=== PATIENT | female | born 1980 | race Caucasian/White ===

== ENCOUNTER 2017-01-03 18:27 | Emergency (ER) | payer OTHER ==
[~2017-01-03] VITALS: Ht 170.2 cm; Wt 108.0 kg
[~2017-01-03 18:27] MED LIST: ATENOLOL100 M1 PO; AUGMENTIN 875-1 EACH PO; LEVOTHYROXINE25 MCG PO; LISINOPRIL40 M1 PO; METFORMIN HCL1000 M1 PO; METFORMIN HCL500 MG PO; METHIMAZOLE10 MG PO; ZANTAC 150MG150 MG PO
[2017-01-03 19:52] LABS: ABSOLUTE BASOPHIL COUNT 0 /CUMM (0.0-0.2); ABSOLUTE EOSINOPHIL COUNT 0.1 /CUMM (0.0-0.7); ABSOLUTE GRANULOCYTE CT 8.2 /CUMM (1.4-6.5); ABSOLUTE LYMPH COUNT 2.2 /CUMM (1.2-3.4); ABSOLUTE MONOCYTE COUNT 0.7 /CUMM (0.10-0.60); BASOPHIL % 0.2 % (0.0-2.0); EOSINOPHIL % 1.1 % (0-5); GRANULOCYTE % 73.3 % (42.2-75.2); HEMATOCRIT 35.1 % (37-47); MEAN CORPUSCULAR HGB 23.9 PG (27.0-31.0); MEAN CORPUSCULAR HGB CONC 33.2 G/DL (33.0-37.0); MEAN PLATELET VOLUME 7.7 FL (7.4-10.4); PLATELET COUNT 354 /CUMM (130-400); RBC DISTRIBUTION WIDTH 14.8 % (11.5-14.5); RED BLOOD CELL CT 4.87 /CUMM (4.20-5.40); WHITE BLOOD CELL COUNT 11.2 /CUMM (4.8-10.8)
[2017-01-03] MEDS ORDERED: PANTOPRAZOLE SO40 M1 PO (19:58)
[2017-01-03] MEDS ORDERED: LEVOTHYROXINE50 MCG PO (19:59)
[2017-01-03] MEDS ORDERED: DEXILANT60 M1 PO (19:59)
[2017-01-03] MEDS ORDERED: OMEGA-31000 M1 PO (20:00)
[2017-01-03] MEDS ORDERED: FERROUS SULFAT325 M3 PO (20:00)
[2017-01-03] MEDS ORDERED: ALPRAZOLAM0.5 M4 PO (20:01)
--- NOTE | 2017-01-03 20:16 | ED GI/GU/ABDOMINAL COMPLAINT ---
History of Present Illness General Chief Complaint: Abdominal Pain/Flank Pain Stated Complaint: SENT BY URGENT CARE FOR EVAL OF ABD PAIN Source: patient Exam Limitations: no limitations Vital Signs & Intake/Output Vital Signs & Intake/Output Vital Signs Date Time Temp Pulse Resp B/P B/P Pulse O2 O2 Flow FiO2 Mean Ox Delivery Rate 01/030 97.6 78 16 147/85 97 Room Air 01/03 2130 98.2 82 16 130/88 97 Room Air 01/03 1947 Room Air 01/03 1831 98.3 110 16 162/115 199 Room Air ED Intake and Output 01/04 0000 01/03 1200 Intake Total Output Total Balance Patient 238 lb Weight Weight Reported by Patient Measurement Method Allergies Coded Allergies: NO KNOWN ALLERGIES (11/21/16) Reconcile Medications Alprazolam 0.5 MG TABLET 1 TAB PO PRN FLIGHT (Reported) Atenolol 100 MG TABLET 1 TAB PO DAILY HTN (Reported) Dexlansoprazole (Dexilant) 60 MG SHYAM.BP 1 CAP PO DAILY GI (Reported) Ferrous Sulfate 325 MG (65 MG IRON) TABLET 1 TAB PO DAILY SUPPLEMENT ( Reported) Levothyroxine Sodium 50 MCG TABLET 1 TAB PO DAILY THYROID (Reported) Lisinopril 40 MG TABLET 1 TAB PO DAILY HTN (Reported) Metformin HCl 1,000 MG TABLET 1 TAB PO BID DIABETES (Reported) Providence-3 Fatty Acids (Providence-3) (Unknown Strength) CAPSULE (Unknown Dose) PO DAILY SUPPLEMENT (Reported) Oxycodone HCl/Acetaminophen (Percocet 5-325 MG Tablet) 5 MG-325 MG TABLET 1-2 TAB PO Q6P PRN PAIN Triage Note: PT STATES SHE IS HAVING ABD PAIN THAT GOES FROM HER [place] TO HER RIGHT SIDE THAT BEGAN AT 0900 TODAY;. PT WENT TO WALK IN AND WAS SENT HERE TO R/O APPENDICITIS. PT STATES SHE HAS HAD CHILLS ON AND OFF TODAY Triage Nurses Notes Reviewed? yes ? n Is pt currently ? No Onset: Abrupt Duration: day(s): (1), constant, getting worse Timing: recent history Quality/Severity: sharpness, severe Location: right lower quadrant Activities at Onset: none No Modifying Factors: none HPI: 36-year-old female comes into emergency room with complaints of right lower abdominal pain. Patient reports that she started with some periumbilical pain that was sudden onset this morning and now has progressively gotten worse in the right lower abdomen. Decreased appetite. Denies any fever chills vomiting. Denies any vaginal discharge. Mild increased frequency with urination but denies any other urinary symptoms. Denies any other systemic symptoms. (PAYTON SORIANO) Past History Travel History Traveled to [place] past 21 day No Medical History Any Pertinent Medical History? see below for history EENT: NONE Cardiovascular: hypertension Respiratory: NONE Gastrointestinal: ACID REFLUX Hepatic: NONE Renal: NONE Musculoskeletal: NONE Psychiatric: NONE Endocrine: diabetes, Grave's disease Surgical History Surgical History: none Psychosocial History What is your primary language Amharic Tobacco Use: Current Daily Use Daily Tobacco Use Amount/Type: => 5 Cigarettes daily ETOH Use: occasional use Illicit Drug Use: denies illicit drug use Family History Hx Contributory? No (PAYTON SORIANO) Review of Systems Review of Systems Constitutional: Reports: no symptoms. EENTM: Reports: no symptoms. Respiratory: Reports: no symptoms. Cardiovascular: Reports: no symptoms. GI: Reports: see HPI. Genitourinary: Reports: see HPI. Musculoskeletal: Reports: no symptoms. Skin: Reports: no symptoms. Neurological/Psychological: Reports: no symptoms. Hematologic/Endocrine: Reports: no symptoms. Immunologic/Allergic: Reports: no symptoms. All Other Systems: Reviewed and Negative (PAYTON SORIANO) Physical Exam Physical Exam General Appearance: well developed/nourished, alert, awake Head: atraumatic, normal appearance Eyes: Bilateral: normal appearance. Ears, Nose, Throat, Mouth: hearing grossly normal, moist mucous membrane Neck: normal inspection Respiratory: normal breath sounds, no respiratory distress Cardiovascular: regular rate/rhythm Gastrointestinal: soft, tenderness (right lower quadrant), no guarding, no rebound tenderness Back: normal inspection Extremities: normal range of motion Neurologic/Psych: awake, alert, oriented x 3, normal gait, normal mood/affect Skin: intact, normal color Core Measures ACS in differential dx? No Severe Sepsis Present: No Septic Shock Present: No (PAYTON SORIANO) Progress Differential Diagnosis: AMI, appendicitis, biliary colic, bowel obstruction, cholecystitis, diverticulitis, gastritis, hepatitis, inflamm bowel dis, kidney stone, ovarian cyst, ovarian torsion, PID/cervicitis, threatened AB, UTI/pyelo Plan of Care: Orders Procedure Date/time Status URINE 01/04 1916 Complete URINALYSIS 01/04 1916 Complete C-REACTIVE PROTEIN 01/04 1916 Complete COMPREHENSIVE METABOLIC PANEL 01/04 1916 Complete CBC WITHOUT DIFFERENTIAL 01/04 1916 Complete Laboratory Tests 01/03/171942: Urinalysis LIGHT H, Urine Color YEL, Urine Clarity HAZY H, Urine pH 7.0, Ur Specific [place] 1.010, Urine Protein NEG, Urine Ketones NEG, Urine Nitrite NEG, Urine Bilirubin NEG, Urine Urobilinogen 0.2, Ur Leukocyte Esterase NEG, Ur Microscopic SEDIMENT EXAMINED, Urine RBC 1-3, Urine WBC RARE, Ur Epithelial Cells MOD H, Urine Hemoglobin SMALL H, Urine Glucose NEG, Urine Test NEGATIVE 01/03/171941: Anion Gap 10, Estimated GFR > 60, BUN/Creatinine Ratio 11.7, Glucose 100 H, Calcium 9.1, Total Bilirubin 0.7, AST 18, ALT 32, Alkaline Phosphatase 49, C- Reactive Prot, Quant 2.1 H, Total Protein 7.6, Albumin 4.4, Globulin 3.2, Albumin/Globulin Ratio 1.4, CBC w Diff NO MAN DIFF REQ, RBC 4.87, MCV 72.0 L, MCH 23.9 L, RDW 14.8 H, MPV 7.7, Gran % 73.3, Lymphocytes % 19.4 L, Monocytes % 6.0, Eosinophils % 1.1, Basophils % 0.2, Absolute Granulocytes 8.2 H, Absolute Lymphocytes 2.2, Absolute Monocytes 0.7 H, Absolute Eosinophils 0.1, Absolute Basophils 0, PUBS MCHC 33.2 Diagnostic Imaging: Viewed by Me: CT Scan, Ultrasound. Discussed w/RAD: CT Scan, Ultrasound. Radiology Impression: SERVICE DATE: 01/03/17 EXAM TYPE: US - US- TRANSVAGINAL EXAMINATION: ULTRASOUND PELVIC, COMPLETE CLINICAL INFORMATION: Right-sided pelvic pain COMPARISON: CT scan abdomen pelvis 01/03/2017 TECHNIQUE: Transvaginal: Used to better visualize pelvic structures Transabdominal: Not adequate for visualization Spectral Doppler and color Doppler exam was utilized. LMP: 12/20/2016 FINDINGS: UTERUS: Unremarkable. Uterus is anteverted The uterus measures 9.3 x 4.2 x 5.4 cm. Cervical length 2.9 cm Endometrial thickness 0.6 cm ADNEXA: Ovarian vascularity:Doppler demonstrates both arterial and venous vascular flow in the right ovary. No evidence of ovarian torsion. The left ovary is not seen. Right Ovary: Unremarkable. 2.4 x 3.8 x 2.5 cm. Volume 11.6 mL Left Ovary: Left ovary not seen. No adnexal abnormality. Cul-de-sac: No Fluid IMPRESSION: Left ovary is not visualized. Normal vascular flow seen of the right ovary with no evidence of torsion. DICTATED BY: AXEL LEIVA MD DATE/TIME DICTATED:01/03/172303 FLEECER:KAYLA DATE/TIME TRANSCRIBED:2303 CONFIDENTIAL, DO NOT COPY WITHOUT APPROPRIATE AUTHORIZATION., SERVICE DATE: 01/03/17 EXAM TYPE: CAT - CT ABD & PELVIS W IV CONTRAST EXAMINATION: CT ABDOMEN AND PELVIS WITH CONTRAST CLINICAL INFORMATION: Right lower quadrant abdominal pain. Evaluate for acute appendicitis. COMPARISON: CT abdomen and pelvis 03/15/2013. TECHNIQUE: Multidetector volumetric imaging was performed of the abdomen and pelvis before and after the IV administration of 95 mL of Optiray 320 intravenous contrast. Sagittal and coronal reformatted images were obtained on the technologist's workstation. DLP: 1011 mGy-cm FINDINGS: LUNG BASES: The visualized lung bases are unremarkable. LIVER, GALLBLADDER, AND BILIARY TREE: The liver is normal in size, shape, and attenuation. No focal hepatic lesion or biliary ductal dilatation is present. The gallbladder is unremarkable with no evidence of radiopaque gallstones, gallbladder wall thickening, or obvious pericholecystic inflammatory changes. PANCREAS: Unremarkable. SPLEEN: Unremarkable. ADRENAL GLANDS: Unremarkable. KIDNEYS AND URETERS: The kidneys are normal in size, shape, and attenuation. No hydronephrosis, hydroureter, or calculi seen. No perinephric stranding. BLADDER: Unremarkable. GASTROINTESTINAL TRACT: Normal anatomic orientation of the stomach relative to the duodenum. Normal caliber of abdominal and pelvic bowel loops, without evidence of obstruction or ileus. No circumferential bowel wall thickening with surrounding inflammatory changes to suggest an underlying infectious or inflammatory enterocolitis. Normal-appearing appendix within the right lower quadrant of the abdomen. No organizing intra-abdominal fluid collections or free intraperitoneal air. ABDOMINAL WALL: Small fat-containing umbilical hernia. LYMPH NODES: No significant abdominal or pelvic adenopathy. VASCULAR: Patent abdominal vasculature. Normal course and caliber of the abdominal aorta and its branching vessels, without aneurysmal dilatation. PELVIC VISCERA: Asymmetric enlargement of the right ovary. OSSEOUS STRUCTURES: No acute osseous abnormality. Normal alignment of the thoracolumbar spine. IMPRESSION: No acute findings within the abdomen to explain patient symptomatology. A normal- appearing appendix is present within the right lower quadrant of the abdomen. There is asymmetric enlargement of the right ovary. If the patient is experiencing right-sided pelvic pain, consider correlation with pelvic ultrasound. DICTATED BY: TAVO HERNÁNDEZ MD DATE/TIME DICTATED:01/03/172113 FLEECER:KAYLA DATE/TIME TRANSCRIBED:01/03/172113 Initial ED EKG: none Comments: Patient reevaluated multiple times. Patient feels better after IV morphine. Patient clinically looks well. Very low suspicion for ovarian torsion. Patient reports that they typically have difficulty finding one of her ovaries broken remember which one on previous imaging. No evidence of appendicitis. Patient can follow-up with her [employer] doctor this time. She is resting comfortably in the room upon discharge. In no apparent distress. Denies any vaginal discharge. Case discussed with Dr. morris. Return if any other concerns worsening symptoms. (PAYTON SORIANO) Departure Departure Disposition: HOME OR SELF CARE Condition: Stable Clinical Impression Primary Impression: Abdominal pain Referrals: MARIBEL BOLDEN MD (PCP/Family) Additional Instructions: Take Percocet as prescribed. Follow-up with your [employer] doctor. Call them tomorrow for further evaluation. Return to the emergency room immediately if any other concerns worsening symptoms. A copy of the report has been provided to you. Departure Forms: Customer Survey General Discharge Information Prescriptions: Current Visit Scripts Oxycodone HCl/Acetaminophen (Percocet 5-325 MG Tablet) 1-2 TAB PO Q6P PRN PAIN #10 TAB (PAYTON SORIANO) PA/CARBON DIOXIDE OPERATOR Co-Sign Statement Statement: ED Attending supervision documentation- I saw and evaluated the patient. I have also reviewed all the pertinent lab results and diagnostic results. I agree with the findings and the plan of care as documented in the PA's/CARBON DIOXIDE OPERATOR's documentation. x I have reviewed the ED Record and agree with the PA's/CARBON DIOXIDE OPERATOR's documentation. [] Additions or exceptions (if any) to the PAs/CARBON DIOXIDE OPERATOR's note and plan are summarized below: [] (MARY BETH ALY,MANUEL)
--- NOTE | 2017-01-03 21:32 | CT SCAN REPORT ---
EXAMINATION: CT ABDOMEN AND PELVIS WITH CONTRAST CLINICAL INFORMATION: Right lower quadrant abdominal pain. Evaluate for acute appendicitis. COMPARISON: CT abdomen and pelvis 03/15/2013. TECHNIQUE: Multidetector volumetric imaging was performed of the abdomen and pelvis before and after the IV administration of 95 mL of Optiray 320 intravenous contrast. Sagittal and coronal reformatted images were obtained on the technologist's workstation. DLP: 1011 mGy-cm FINDINGS: LUNG BASES: The visualized lung bases are unremarkable. LIVER, GALLBLADDER, AND BILIARY TREE: The liver is normal in size, shape, and attenuation. No focal hepatic lesion or biliary ductal dilatation is present. The gallbladder is unremarkable with no evidence of radiopaque gallstones, gallbladder wall thickening, or obvious pericholecystic inflammatory changes. PANCREAS: Unremarkable. SPLEEN: Unremarkable. ADRENAL GLANDS: Unremarkable. KIDNEYS AND URETERS: The kidneys are normal in size, shape, and attenuation. No hydronephrosis, hydroureter, or calculi seen. No perinephric stranding. BLADDER: Unremarkable. GASTROINTESTINAL TRACT: Normal anatomic orientation of the stomach relative to the duodenum. Normal caliber of abdominal and pelvic bowel loops, without evidence of obstruction or ileus. No circumferential bowel wall thickening with surrounding inflammatory changes to suggest an underlying infectious or inflammatory enterocolitis. Normal-appearing appendix within the right lower quadrant of the abdomen. No organizing intra-abdominal fluid collections or free intraperitoneal air. ABDOMINAL WALL: Small fat-containing umbilical hernia. LYMPH NODES: No significant abdominal or pelvic adenopathy. VASCULAR: Patent abdominal vasculature. Normal course and caliber of the abdominal aorta and its branching vessels, without aneurysmal dilatation. PELVIC VISCERA: Asymmetric enlargement of the right ovary. OSSEOUS STRUCTURES: No acute osseous abnormality. Normal alignment of the thoracolumbar spine. IMPRESSION: No acute findings within the abdomen to explain patient symptomatology. A normal-appearing appendix is present within the right lower quadrant of the abdomen. There is asymmetric enlargement of the right ovary. If the patient is experiencing right-sided pelvic pain, consider correlation with pelvic ultrasound.
[2017-01-03 22:50] VITALS: BP 147/85
--- NOTE | 2017-01-03 23:11 | ULTRASOUND REPORT ---
EXAMINATION: ULTRASOUND PELVIC, COMPLETE CLINICAL INFORMATION: Right-sided pelvic pain COMPARISON: CT scan abdomen pelvis 01/03/2017 TECHNIQUE: Transvaginal: Used to better visualize pelvic structures Transabdominal: Not adequate for visualization Spectral Doppler and color Doppler exam was utilized. LMP: 12/20/2016 FINDINGS: UTERUS: Unremarkable. Uterus is anteverted The uterus measures 9.3 x 4.2 x 5.4 cm. Cervical length 2.9 cm Endometrial thickness 0.6 cm ADNEXA: Ovarian vascularity:Doppler demonstrates both arterial and venous vascular flow in the right ovary. No evidence of ovarian torsion. The left ovary is not seen. Right Ovary: Unremarkable. 2.4 x 3.8 x 2.5 cm. Volume 11.6 mL Left Ovary: Left ovary not seen. No adnexal abnormality. Cul-de-sac: No Fluid IMPRESSION: Left ovary is not visualized. Normal vascular flow seen of the right ovary with no evidence of torsion.
[2017-01-03] MEDS ORDERED: PERCOCET 5-3251 EACH PO (23:32)
== END 2017-01-04 00:03 ==
LOC: ERH 18:27
PROVIDERS: Physician Assistant Medical
DX: R10.31 Right lower quadrant pain (principal)
CPT/HCPCS: 74177; 81001; 81025; 96374; 96375; 96376; J2405

== ENCOUNTER 2017-12-28 11:59 | Emergency (ER) | payer OTHER ==
[~2017-12-28] VITALS: Ht 170.2 cm; Wt 79.8 kg
[~2017-12-28 11:59] MED LIST changes: +ALPRAZOLAM0.5 M4 PO; +DEXILANT60 M1 PO; +FERROUS SULFAT325 M3 PO; +LEVOTHYROXINE50 MCG PO; +OMEGA-31000 M1 PO; +PANTOPRAZOLE SO40 M1 PO; +PERCOCET 5-3251 EACH PO; +VALIUM5 M2 PO
--- NOTE | 2017-12-28 12:13 | ED GI/GU/ABDOMINAL COMPLAINT ---
History of Present Illness General Chief Complaint: Abdominal Pain/Flank Pain Stated Complaint: ABD PAIN Source: patient Exam Limitations: no limitations Vital Signs & Intake/Output Vital Signs & Intake/Output Vital Signs Date Time Temp Pulse Resp B/P B/P Pulse O2 O2 Flow FiO2 Mean Ox Delivery Rate 12/28 1410 98.6 63 18 122/78 98 Room Air 12/28 1213 96.9 60 18 135/88 97 Room Air Allergies Coded Allergies: NO KNOWN ALLERGIES (11/21/16) Reconcile Medications Atenolol 100 MG TABLET 1 TAB PO DAILY HTN (Reported) Dexlansoprazole (Dexilant) 60 MG SHYAM.BP 1 CAP PO DAILY GI (Reported) Diazepam (Valium) 5 MG TABLET 1 TAB PO BIDP PRN Cervical Muscle Spasm Ferrous Sulfate 325 MG (65 MG IRON) TABLET 1 TAB PO DAILY SUPPLEMENT ( Reported) Hydrocodone/Acetaminophen (Surveyor 5-325 Tablet) 5 MG-325 MG TABLET 1-2 TAB PO Q4-6 PRN PRN pain Levothyroxine Sodium 50 MCG TABLET 1 TAB PO DAILY THYROID (Reported) Lisinopril 40 MG TABLET 1 TAB PO BID BP (Reported) Metformin HCl 1,000 MG TABLET 1 TAB PO BID DIABETES (Reported) Hooper-3 Fatty Acids (Hooper-3) (Unknown Strength) CAPSULE (Unknown Dose) PO DAILY SUPPLEMENT (Reported) Ondansetron (Zofran Odt) 4 MG TAB.RAPDIS 1 TAB SL TID PRN nausea Ondansetron (Zofran Odt) 4 MG TAB.RAPDIS 1 TAB SL TID PRN nausea Triage Note: PT TO ER C/C RUQ PAIN X 1 WEEK. +N/V. HX OF GASTRIC SLEEVE 08/2017 WITH 64 LB WEIGHT LOSS. DENIES URINARY S/S. Triage Nurses Notes Reviewed? yes LMP (ages 10-50): unknown ? N Is pt currently ? No Onset: Abrupt Duration: week(s): (1), changing over time, gone now, intermittent Timing: single episode today Quality/Severity: cramping Severity Numbers: 7 Location: right upper quadrant Radiation: no radiation Activities at Onset: none Prior Abdominal Problems: none Past Sexual History: Unobtainable at this time No Modifying Factors: none Modifying Factors: Worsens With: eating. Associated Symptoms: abdominal pain, nausea/vomiting HPI: 37-year-old female past medical history of hypertension, obesity status post gastric sleeve last year, Graves' disease presents for evaluation of abdominal pain. Patient states that over the past week she has intermittent episodes of right upper quadrant abdominal pain nausea and vomiting. Patient states that symptoms will start typically after eating especially fatty foods and then resolved several hours later. The pain is located in the right upper quadrant and described as cramping. It will sometimes radiate to the right flank. No diarrhea urinary symptoms fever chest pain or shortness of breath. She never had this before. No hematuria. Currently patient is asymptomatic. Her last episode was last night while eating dinner. She has a gallbladder ultrasound scheduled for next week but feels like she cannot wait. (Luis Bahena) Past History Travel History Traveled to [place] past 21 day No Medical History Any Pertinent Medical History? see below for history EENT: NONE Cardiovascular: hypertension Respiratory: NONE Gastrointestinal: ACID REFLUX Hepatic: NONE Renal: NONE Musculoskeletal: NONE Psychiatric: NONE Endocrine: diabetes, Grave's disease Surgical History Surgical History: none Psychosocial History What is your primary language Malay Tobacco Use: Quit >30 days ago Family History Hx Contributory? No (Luis Bahena) Review of Systems Review of Systems Constitutional: Reports: no symptoms. EENTM: Reports: no symptoms. Respiratory: Reports: no symptoms. Cardiovascular: Reports: no symptoms. GI: Reports: see HPI, abdominal pain, nausea, vomiting. Genitourinary: Reports: no symptoms. Musculoskeletal: Reports: no symptoms. Skin: Reports: no symptoms. Neurological/Psychological: Reports: no symptoms. Hematologic/Endocrine: Reports: no symptoms. Immunologic/Allergic: Reports: no symptoms. All Other Systems: Reviewed and Negative (Luis Bahena) Physical Exam Physical Exam General Appearance: well developed/nourished, no apparent distress, alert, awake Head: atraumatic, normal appearance Eyes: Bilateral: normal appearance, PERRL, EOMI. Ears, Nose, Throat, Mouth: hearing grossly normal, moist mucous membrane Neck: normal inspection, supple, full range of motion Respiratory: normal breath sounds, chest non-tender, no respiratory distress, lungs clear Cardiovascular: regular rate/rhythm, normal peripheral pulses Peripheral Pulses: 2+ radial (R), 2+ radial (L) Gastrointestinal: normal bowel sounds, soft, no organomegaly, tenderness (MILD RUQ) Back: normal inspection, normal range of motion, no vertebral tenderness Extremities: normal range of motion Neurologic/Psych: no motor/sensory deficits, awake, alert, oriented x 3, normal gait, normal mood/affect Skin: intact, normal color, warm/dry Core Measures ACS in differential dx? No Sepsis Present: No Sepsis Focused Exam Completed? No (Luis Bahena) Progress Differential Diagnosis: appendicitis, biliary colic, cholecystitis, gastritis, hepatitis, intrauterine , kidney stone, pancreatitis, peptic ulcer, PUD /GERD, UTI/pyelo Plan of Care: Orders Procedure Date/time Status URINE 12/28 1212 Complete URINALYSIS 12/28 1212 Complete LIPASE 12/28 1212 Complete COMPREHENSIVE METABOLIC PANEL 12/28 1212 Complete CBC WITHOUT DIFFERENTIAL 12/28 1212 Complete Laboratory Tests 12/28/17 1250: Anion Gap 16, Estimated GFR > 60, BUN/Creatinine Ratio 15.7, Glucose 91, Calcium 9.6, Total Bilirubin 0.9, AST 16, ALT 25, Alkaline Phosphatase 44, Total Protein 8.4 H, Albumin 4.8, Globulin 3.6, Albumin/Globulin Ratio 1.3, Lipase 174, CBC w Diff NO MAN DIFF REQ, RBC 5.48 H, MCV 73.9 L, MCH 23.9 L, MCHC 32.3 L, RDW 19.4 H, MPV 9.1, Gran % 65.8, Lymphocytes % 24.1, Monocytes % 8.5, Eosinophils % 1.2, Basophils % 0.4, Absolute Granulocytes 4.1, Absolute Lymphocytes 1.5, Absolute Monocytes 0.5, Absolute Eosinophils 0.1, Absolute Basophils 0 12/28/17 1245: Urine Color YEL, Urine Clarity CLEAR, Urine pH 6.5, Ur Specific [place] <= 1.005 , Urine Protein NEG, Urine Ketones NEG, Urine Nitrite NEG, Urine Bilirubin NEG, Urine Urobilinogen 0.2, Ur Leukocyte Esterase NEG, Ur Microscopic EXAM NOT REQUIRED, Urine Hemoglobin NEG, Urine Glucose NEG, Urine Test NEGATIVE Patient seen and evaluated. She is reporting intermittent right upper quadrant pain nausea and vomiting over the past week. Symptoms seem to worsen with eating specific greasy fatty foods. No diarrhea no chest pain or shortness of breath. Currently she states feels well declines any pain medication. Check basic labs and an ultrasound of the right upper quadrant. Blood work is within normal limits patient is still asymptomatic. Waiting on ultrasound result. us SHOWS EVIDENCE OF SMALL GALLSTONES OR SLUDGE. NO SIGNS OF CHOLECYSTITIS. PATIENT CONTINUES TO BE ASYMPTOMATIC HERE. Reviewed all results of today's visit with patient. She'll be given a prescription for Zofran and Surveyor to use for any returning pain. Avoid greasy fatty spicy foods. Call Dr. Obrien on Saturday. Discussed return precautions in detail return with fever or worsening pain and his Phi fluids jaundice or any other concerns. Patient agrees the plan. Diagnostic Imaging: Viewed by Me: Ultrasound. Discussed w/RAD: Ultrasound. Radiology Impression: PATIENT: KIRSTEN BASURTO PRESENT AGE: 37 PATIENT ACCOUNT NO: [id number] : 82 LOCATION: [facility] ORDERING PHYSICIAN: Luis LUCIANO SERVICE DATE: 12/28/17 EXAM TYPE: US - US- LIMITED ABDOMEN EXAMINATION: US ABDOMEN LIMITED CLINICAL INFORMATION: Right upper quadrant pain, intermittent, worse with eating.. COMPARISON: Abdominal ultrasound 11/30/2016. TECHNIQUE: Real-time imaging of the right upper quadrant abdominal viscera. FINDINGS: PANCREAS: The visualized portions are unremarkable. LIVER: Normal. The liver demonstrates normal size, contour and echogenicity. No focal lesion or intrahepatic biliary duct dilatation. GALLBLADDER: There are tiny stones and/or sludge within the dependent gallbladder, which are new from prior examination. No gallbladder wall thickening or pericholecystic fluid. COMMON BILE DUCT: Normal in caliber measuring 0.4 cm in diameter. RIGHT KIDNEY: Normal. No hydronephrosis. No renal calculi or focal parenchymal lesions. The kidney measures 13.3 cm in maximum dimension which is at the upper limits of normal. FREE FLUID: None. IMPRESSION: Small gallstones and/or sludge. No evidence of cholecystitis. DICTATED BY: Marshall Mohan MD DATE/TIME DICTATED:1400 POLYSOMNOGRAPHY TECHNOLOGIST:KAYLA DATE/TIME TRANSCRIBED:12/28/171400 CONFIDENTIAL, DO NOT COPY WITHOUT APPROPRIATE AUTHORIZATION. <Electronically signed in Other Vendor System> SIGNED BY: Marshall Mohan MD 12/28/171407 Initial ED EKG: none (Jose LUCIANO,Luis) Departure Departure Disposition: HOME OR SELF CARE Condition: Stable Clinical Impression Primary Impression: Cholelithiasis Qualifiers: Cholelithiasis location: gallbladder Cholecystitis presence: without cholecystitis Referrals: Camille ALY,Ravi Snyder MD,Soumya Additional Instructions: Rest drink plenty of fluids. Zofran for nausea and Surveyor for severe pain only. Avoid greasy fatty spicy foods. Zantac or Pepcid . Call Dr. Obrien on Saturday to schedule an appointment as soon as possible. It's important to monitor symptoms if you have worsening/changing pain, fever, unable tolerate fluids or any other concerns return immediately. Departure Forms: Customer Survey General Discharge Information Prescriptions: Current Visit Scripts Ondansetron (Zofran Odt) 1 TAB SL TID PRN nausea #10 TAB Ondansetron (Zofran Odt) 1 TAB SL TID PRN nausea #10 TAB Hydrocodone/Acetaminophen (Surveyor 5-325 Tablet) 1-2 TAB PO Q4-6 PRN PRN pain #10 TAB (Luis Bahena) PA/[employer]PER[employer]OR [employer] Co-Sign Statement Statement: ED Attending supervision documentation- I saw and evaluated the patient. I have also reviewed all the pertinent lab results and diagnostic results. I agree with the findings and the plan of care as documented in the PA's/[employer]PER[employer]'s documentation. x I have reviewed the ED Record and agree with the PA's/[employer]PER[employer]'s documentation. [] Additions or exceptions (if any) to the PAs/[employer]PER[employer]'s note and plan are summarized below: [] (Christos ALY,Calin)
[2017-12-28 13:14] LABS: ABSOLUTE BASOPHIL COUNT 0 /CUMM (0.0-0.2); ABSOLUTE EOSINOPHIL COUNT 0.1 /CUMM (0.0-0.7); ABSOLUTE GRANULOCYTE CT 4.1 /CUMM (1.4-6.5); ABSOLUTE LYMPH COUNT 1.5 /CUMM (1.2-3.4); ABSOLUTE MONOCYTE COUNT 0.5 /CUMM (0.10-0.60); BASOPHIL % 0.4 % (0.0-2.0); EOSINOPHIL % 1.2 % (0-5); GRANULOCYTE % 65.8 % (42.2-75.2); HEMATOCRIT 40.5 % (37-47); MEAN CORPUSCULAR HGB 23.9 PG (27.0-31.0); MEAN CORPUSCULAR HGB CONC 32.3 G/DL (33.0-37.0); MEAN CORPUSCULAR VOLUME 73.9 FL (81.0-99.0); MEAN PLATELET VOLUME 9.1 FL (7.4-10.4); PLATELET COUNT 370 /CUMM (130-400); RBC DISTRIBUTION WIDTH 19.4 % (11.5-14.5); RED BLOOD CELL CT 5.48 /CUMM (4.20-5.40); WHITE BLOOD CELL COUNT 6.3 /CUMM (4.8-10.8)
--- NOTE | 2017-12-28 14:08 | ULTRASOUND REPORT ---
EXAMINATION: US ABDOMEN LIMITED CLINICAL INFORMATION: Right upper quadrant pain, intermittent, worse with eating.. COMPARISON: Abdominal ultrasound 11/30/2016. TECHNIQUE: Real-time imaging of the right upper quadrant abdominal viscera. FINDINGS: PANCREAS: The visualized portions are unremarkable. LIVER: Normal. The liver demonstrates normal size, contour and echogenicity. No focal lesion or intrahepatic biliary duct dilatation. GALLBLADDER: There are tiny stones and/or sludge within the dependent gallbladder, which are new from prior examination. No gallbladder wall thickening or pericholecystic fluid. COMMON BILE DUCT: Normal in caliber measuring 0.4 cm in diameter. RIGHT KIDNEY: Normal. No hydronephrosis. No renal calculi or focal parenchymal lesions. The kidney measures 13.3 cm in maximum dimension which is at the upper limits of normal. FREE FLUID: None. IMPRESSION: Small gallstones and/or sludge. No evidence of cholecystitis.
[2017-12-28 14:10] VITALS: BP 122/78
[2017-12-28] MEDS ORDERED: ZOFRAN ODT4 M1 SL ×2 (14:53→14:54)
[2017-12-28] MEDS ORDERED: NORCO 5-325 TA1 EACH PO ×2 (14:53→14:54)
== END 2017-12-28 15:47 ==
LOC: ERH 11:59
PROVIDERS: Physician Assistant Medical
DX: K80.20 Calculus of gallbladder without cholecystitis without obstruction (principal)
CPT/HCPCS: 81003; 81025

== ENCOUNTER → 2018-01-10 | Day surgery (SDC) | payer OTHER ==
[~2018-01-10] VITALS: Ht 170.2 cm; Wt 79.8 kg
[~2018-01-10] MED LIST changes: +CALCIUM 600 +1 EACH PO; +IRON325 M3 PO; +KETOROLAC TROME10 M1 PO; +LEVOXYL100 MCG PO; +MULTIVITAMINS1 EAC9 PO; +NORCO 5-325 TA1 EACH PO; +TYLENOL WITH C1 EACH PO; +VITAMIN B122500 MC1 PO; +ZOFRAN ODT4 M1 SL
--- NOTE | 2018-01-10 16:17 | Operative Report ---
Operative/Inv Procedure Report Surgery Date: 01/10/18 Name of Procedure: Laparoscopic cholecystectomy Pre-Operative Diagnosis: cholecystitis Post-Operative Diagnosis: same Estimated Blood Loss: less than 20cc Surgeon/Conveyor Mechanic: Camille ALY,Chad Ellsworth PA-C Anesthesia: general endotracheal tube, block IV Fluids: LR Implants: none Urine Output: na Drains: none Specimens: gallbladder Complications: none Condition: stable Operative Indication: see admitting history and physical Operative/Procedure Note Note: After informed consent and proper identification the patient was taken the operating room placed on the operating table supine position. Venodyne stockings were applied. Patient underwent a general endotracheal anesthetic. The abdomen was prepped and draped in normal sterile fashion. An infraumbilical incision was made with #11 blade through the skin subcutaneous tissue down to the fascia. The fascia was elevated between 2-0 Vicryl sutures and opened transversely and a blunt port cannula inserted into the abdominal cavity under direct visualization. We insufflated the abdomen with 14 mm CO2 pressure. Next we placed 3 additional trochars 5 mm trocar in the upper midline and 25 mm trochars along the right subcostal margin. Regressive fundus of the gallbladder dissected the cystic duct and cystic artery out with a [place] dissector after pulling the infundibulum laterally and opening up the triangle Calot. We clearly identified the cystic duct and cystic stick artery and with a 5 mm clip clinical review nurse placed 2 clips proximally and one distally and divided the duct and artery we then dissected the gallbladder out of the liver bed without difficulty. Hemostasis was obtained from the liver bed. Removed the gallbladder and 10 Endo Catch bag. Gallbladder sent to pathology specimen. Sponge and instrument counts were correct. We close infraumbilical fascia with 0 Vicryl suture. We closed skin incisions with 4-0 Monocryl subcuticular stitches. Dry sterile dressings placed Patient was awoken extubated and taken the recovery room in stable condition Findings: smooth liver, tiny small sediment in gallbladder, smooth liver Discharge Disposition: PACU
== END ==
LOC: STS 01:13
DX: K80.10 Calculus of gallbladder with chronic cholecystitis without obstruction (principal); E11.9 Type 2 diabetes mellitus without complications; I10 Essential (primary) hypertension; E03.9 Hypothyroidism, unspecified; G47.33 Obstructive sleep apnea (adult) (pediatric); E66.9 Obesity, unspecified; Z68.28 Body mass index [BMI] 28.0-28.9, adult
CPT/HCPCS: 88304; J0131; J0690; J2250; J3490